=== PATIENT | female | born 1940 | race Caucasian/White ===

== ENCOUNTER → 2017-04-21 | Outpatient (CLI) | payer MEDICARE, BC ==
[~2017-04-21] MED LIST: ASPIRIN E.C. 8181 MG PO; B-121000 MCG PO; FISH OIL1000 MG PO; FOLIC ACID0.4 MG PO; GLUCOSAMINE & C1 CA1 PO; SUPER CALCIUM W1 TA1 PO; VITAMIN D31000 I1 PO; VITAMINC1000TA PO
== END ==
LOC: MC.RAD 11:15
DX: Z12.31 Encounter for screening mammogram for malignant neoplasm of breast (principal)

== ENCOUNTER → 2017-12-17 | Outpatient (CLI) | payer MEDICARE, BC | LOC: COL.RAD 09:58 | DX: M19.041 Primary osteoarthritis, right hand (principal) | CPT/HCPCS: J3301; Q9967 ==

== ENCOUNTER → 2018-05-02 | Outpatient (CLI) | payer MEDICARE, BC | LOC: MC.RAD 11:10 | DX: Z12.31 Encounter for screening mammogram for malignant neoplasm of breast (principal) ==

== ENCOUNTER → 2019-03-01 | Outpatient (CLI) | payer MEDICARE, BC | LOC: COL.RAD 13:00 | DX: M19.042 Primary osteoarthritis, left hand (principal) | CPT/HCPCS: J3301; Q9967 ==

== ENCOUNTER → 2019-06-05 | Outpatient (CLI) | payer MEDICARE, BC | LOC: MC.RAD 11:26 | DX: Z12.31 Encounter for screening mammogram for malignant neoplasm of breast (principal) ==

== ENCOUNTER → 2020-06-06 | Outpatient (CLI) | payer MEDICARE, BC | LOC: MC.RAD 11:15 | DX: Z12.31 Encounter for screening mammogram for malignant neoplasm of breast (principal) ==

== ENCOUNTER → 2020-10-04 | Outpatient (CLI) | payer MEDICARE, BC | LOC: COL.RAD 13:41 | DX: N18.32 Chronic kidney disease, stage 3b (principal) ==

== ENCOUNTER → 2021-06-27 | Outpatient (CLI) | payer MEDICARE, BC | LOC: MC.RAD 11:39 | DX: Z12.31 Encounter for screening mammogram for malignant neoplasm of breast (principal) ==

== ENCOUNTER → 2021-12-19 | Outpatient (CLI) | payer MEDICARE, BC | LOC: COL.RAD 09:57 | DX: M48.04 Spinal stenosis, thoracic region (principal) ==

== ENCOUNTER → 2022-08-12 | Outpatient (CLI) | payer MEDICARE, BC | LOC: MC.RAD 13:09 | DX: Z12.31 Encounter for screening mammogram for malignant neoplasm of breast (principal) ==

== ENCOUNTER → 2023-01-27 | Outpatient (CLI) | payer MEDICARE, BC | LOC: MHCPAIN 14:01 | DX: M54.50 Low back pain, unspecified (principal); M41.80 Other forms of scoliosis, site unspecified; M17.11 Unilateral primary osteoarthritis, right knee | CPT/HCPCS: G0463 ==

== ENCOUNTER → 2023-02-17 | Outpatient (CLI) | payer MEDICARE, BC | LOC: MHCPAIN 11:16 | DX: M54.50 Low back pain, unspecified (principal); M41.80 Other forms of scoliosis, site unspecified; M47.896 Other spondylosis, lumbar region; Q76.49 Other congenital malformations of spine, not associated with scoliosis | CPT/HCPCS: G0463 ==

== ENCOUNTER → 2023-04-12 | Outpatient (CLI) | payer MEDICARE, BC | LOC: COL.RAD 12:39 | DX: M25.551 Pain in right hip (principal) ==

== ENCOUNTER → 2023-04-29 | Outpatient (CLI) | payer MEDICARE, BC | LOC: MHCPAIN 10:53 | DX: M54.16 Radiculopathy, lumbar region (principal) | CPT/HCPCS: J1100; Q9967 ==

== ENCOUNTER → 2023-05-13 | Outpatient (CLI) | payer MEDICARE, BC ==
[~2023-05-13] MED LIST changes: +Lidocaine PF 1% (10 MG/ML) 5 ML VIAL ONE; +Triamcinolone 40 MG/ML 1 ML VIAL ONE
== END ==
LOC: MHCPAIN 14:56
DX: M54.50 Low back pain, unspecified (principal); M41.80 Other forms of scoliosis, site unspecified; M48.061 Spinal stenosis, lumbar region without neurogenic claudication; Q76.49 Other congenital malformations of spine, not associated with scoliosis; M70.61 Trochanteric bursitis, right hip
CPT/HCPCS: G0463; J3301

== ENCOUNTER 2023-08-10 13:51 | Inpatient (IN) | payer MEDICARE, BC ==
[~2023-08-10] VITALS: Ht 160 cm; Wt 59.1 kg
[~2023-08-10 13:51] MED LIST changes: +CRANBERRY PO; +EPA FISH OIL1 SGL PO; -Lidocaine PF 1% (10 MG/ML) 5 ML VIAL ONE; +NEURONTIN100 MG/CAP PO; +NORVASC 10MG10 MG PO; +PROBIOTIC-10 370 MG PO; -Triamcinolone 40 MG/ML 1 ML VIAL ONE; +VITAMIND3 5000 PO
[2023-08-10] MEDS ORDERED: Sennosides/Docusate 8.6-50 MG TAB PO PRN (16:15)
[2023-08-10] MEDS ORDERED: Naloxone 0.4 MG/ML VIAL IV PRN (16:15)
[2023-08-10] MEDS ORDERED: Polyethylene Glycol 3350 17 GM PDS PO PRN (16:15)
[2023-08-10] MEDS ORDERED: Acetaminophen 325 MG TAB PO PRN (16:15)
[2023-08-10] MEDS ORDERED: Docusate Sodium 100 MG CAP PO PRN (16:15)
[2023-08-10] MEDS ORDERED: oxyCODONE 5 MG TAB PO PRN (16:30)
[2023-08-10 17:10] VITALS: BP 138/65; PULSE 86; TEMP 98.4
[2023-08-10] MEDS ORDERED: ceFAZolin 1 G in Water For Injection,Sterile 10 ML IV SCH (18:00)
[2023-08-10 19:00] VITALS: BP_SYST 138
--- NOTE | 2023-08-10 19:15 | NUR ---
RECEIVED CHANGE OF SHIFT REPORT FROM DAY SHIFT NURSE. PATIENT RESTING IN BED, FAMILY AT BEDSIDE. EXIT ALARM ON, CALL LIGHT IN REACH. NO NEEDS VOICED AT TIME OF REPORT.
[2023-08-10] MEDS ORDERED: Gabapentin 100 MG CAP PO SCH (21:00)
--- NOTE | 2023-08-11 04:37 | NUR ---
REPORTED RIGHT HIP PAIN WITH MOVEMENT OF 9/10, SEE MAR FOR PAIN MED GIVEN. NO OTHER NEEDS REPORTED AT THIS TIME.
[2023-08-11 05:34] VITALS: BP 147/71; PULSE 89; TEMP 98
--- NOTE | 2023-08-11 07:08 | NUR ---
CHANGE OF SHIFT REPORT GIVEN TO DAY SHIFT NURSEMARIA DEL CARMEN. PATIENT RESTING IN BED, EXIT ALARM ON, CALL LIGHT IN REACH.
[2023-08-11 07:17] VITALS: BP_SYST 147
--- NOTE | 2023-08-11 07:18 | NUR ---
Shift report received from night RN. No events reported overnight. Pt sleeping supine in bed w/ even & unlabored. Call light in reach. Bed alarm on.
--- NOTE | 2023-08-11 08:42 | NUR ---
Pt up to ambulate off unit w/ PT.
[2023-08-11] MEDS ORDERED: Cholecalciferol (Vit D3) 5000 Units Capsule PO SCH (09:00)
[2023-08-11] MEDS ORDERED: Cyanocobalamin (Vit B-12) 1,000 MCG TAB PO SCH (09:00)
[2023-08-11] MEDS ORDERED: Omega-3 Fatty Acid Esters (OTC) 1,000 MG CAP PO SCH (09:00)
[2023-08-11] MEDS ORDERED: amLODIPine 10 MG TAB PO SCH (09:00)
--- NOTE | 2023-08-11 11:15 | NUR ---
Pt up to ambulate w/ PT. Pt requesting pain medication. Pt rates pain level at 9 w/ weight bearing activities & 3-4 while at rest. Oxycodone given per PRN order. Other needs denied. Call light in reach.
--- NOTE | 2023-08-11 11:51 | NUR ---
Ice pack given by PT for R hip pain.
--- NOTE | 2023-08-11 13:29 | NUR ---
Pt lying supine in bed. Pt reporting pain level around 8. 2nd dose Oxycodone given - okay per Hospitalist PA. OT at the bedside to work w/ pt. Other needs denied. Call light in reach.
--- NOTE | 2023-08-11 13:33 | NUR ---
Initial dose Keflex given. Reviewed side effects w/ pt. Lexicomp handout given.
--- NOTE | 2023-08-11 13:38 | NUR ---
DEMAR met with patient at bedside to discuss discharge planning. Patient states she lives in [place] alone, is normally independent with ADLs. She states her sons Jaylin ([phone]) and August are her DPOA. She sees Dr. Be as her PCP, uses [facility]. Patient has multiple DME: walker, cane, shower chair, elevated toilet and rollator walker. She relies on friends to drive her to appointments, has total of 10-12 steps in her split level home. Discussed recommendation of HH at discharge, Medicare.gov list provided for patient's review. Patient to talk with her sons to determine time for family meeting on 08/12 at either 9:30 am or 1 pm. Discharge Plan: Home with HH
[2023-08-11] MEDS ORDERED: Cephalexin 500 MG CAP PO SCH (14:00)
--- NOTE | 2023-08-11 14:53 | NUR ---
Initial visit; Patient thanked for looking in on her and when Roller Skate Assembler offered God's blessings Joan interjected the fact that she was Church but was glad to see and glaphil Tan took time to visit. wished Joan well.
--- NOTE | 2023-08-11 15:51 | NUR ---
Pt resting supine in bed. R hip dsg CDI. Pt rating pain at 3/10. Scheduled Tylenol given. Other needs denied. Call light in reach. Bed alarm on.
[2023-08-11] MEDS ORDERED: Acetaminophen 500 MG TAB PO SCH (16:00)
--- NOTE | 2023-08-11 16:21 | NUR ---
Pt supervised as she stood from bed to FWW to ambulate to the bathroom. Toileting hygiene completed independently by the pt. Pt back to bed after toileting. Ice pack given for pain control. Other needs denied. Call light in reach. Bed alarm on.
--- NOTE | 2023-08-11 19:08 | NUR ---
RECEIVED CHANGE OF SHIFT REPORT FROM DAY SHIFT NURSE.
[2023-08-11 19:25] VITALS: BP 134/61; PULSE 82; TEMP 98.9
[2023-08-11 19:31] VITALS: BP_SYST 134
--- NOTE | 2023-08-12 00:36 | NUR ---
REPORTS CONTINUES WITH RIGHT THIGH MUSCLE SORENESS WHEN REPOSITIONING FROM SIT TO STAND AND WITH WALKING BUT WHEN LAYING IN BED, SORENESS SUBSIDES. NO OTHER NEEDS REPORTED AT THIS TIME.
--- NOTE | 2023-08-12 03:10 | NUR ---
PATIENT RESTING IN BED WITH EYES CLOSED, BREATHING NONLABORED AND EVEN. EXIT ALARM ON, CALL LIGHT IN REACH.
[2023-08-12 05:11] VITALS: BP 148/66; PULSE 81; TEMP 97.6
[2023-08-12 05:58] LABS: BASO # 0.1 K/mm3 (0.0-0.2); BASO % 0.6 % (0.0-2.0); EOS # 0.2 K/mm3 (0.0-0.7); EOS % 1.4 % (0.0-4.0); GRAN % 73.4 % (42.2-75.2); LYMPH # 1.7 K/mm3 (1.2-3.4); LYMPH % 15.5 % (20.0-51.0); MEAN CELL VOLUME 99 fl (80.0-100.0); MEAN CORPUSCULAR HGB CONC 34 g/dl (33.0-37.0); MEAN PLATELET VOLUME 9.4 fl (7.4-10.4); MONO # 0.9 K/mm3 (0.1-0.6); MONO % 8.6 % (1.7-9.3); PLATELET COUNT 262 K/mm3 (130-400); RED BLOOD COUNT 2.79 M/mm3 (4.10-5.30); REDCELL DISTRIBUTION WIDTH-CV 11.9 % (11.5-14.5)
[2023-08-12 06:04] LABS: HEMATOCRIT 27.7 % (37.0-47.0); HEMOGLOBIN 9.4 g/dl (12.5-16.0); MEAN CORPUSCULAR HEMOGLOBIN 34 pg (27-31)
[2023-08-12 06:16] LABS: CALCIUM 8.9 mg/dL (8.4-10.2); CREATININE, serum 1.03 mg/dL (0.57-1.11)
[2023-08-12 06:46] VITALS: BP_SYST 148
--- NOTE | 2023-08-12 07:23 | NUR ---
Shift report received from night RN. No events reported overnight. Pt sleeping supine in bed w/ even & unlabored resps. Call light in reach. Bed alarm on.
--- NOTE | 2023-08-12 07:24 | NUR ---
Change of shift report given to day shift nurseAbby.
--- NOTE | 2023-08-12 08:32 | NUR ---
Pt sitting up in bed eating breakfast independently. Pt requesting pain medication prior to starting therapy this morning. Too soon for next dose of Oxycodone. Scheduled Tylenol given for now. Other needs denied. Call light in reach. Bed alarm on.
--- NOTE | 2023-08-12 08:52 | NUR ---
Pt noted getting off toilet w/o asking for assistance by SHOW HOST OR HOSTESS. Re-education provided about fall policy. Pt to wheelchair after toileting. Chair alarm in place. Oxycodone given per PRN order. Pt up to wheelchair waiting for arrival of PT. Call light in reach.
[2023-08-12] MEDS ORDERED: Polyethylene Glycol 3350 17 GM PDS PO SCH (09:00)
--- NOTE | 2023-08-12 09:25 | NUR ---
Pt ambulating off unit w/ PT. Oxycodone given per PRN order
[2023-08-12] MEDS ORDERED: Lidocaine 5% Ointment 35.44 GM TUBE TP SCH (09:37)
--- NOTE | 2023-08-12 10:32 | NUR ---
Called pt's PCP office & spoke w/ nurse Rico to request a hospital discharge appt w/ the PCP, Dr. Be. Per Nurse, they will not schedule a follow up until AFTER pt is discharged. Will note this information on pt's discharge paperwork for the pt to call.
--- NOTE | 2023-08-12 11:40 | NUR ---
DEMAR Jacobs met with patient at bedside to discuss what time would work for her family meeting tomorrow. Patient stated that 9:30 would work better for her sons schedules. Patient questioned what the family meeting would be for. DEMAR Jacobs explained what a family meeting would look like and what would be discussed. Patient did not have any additional questions at this time. IPR Director Fiordaliza informed of family meeting time.
--- NOTE | 2023-08-12 14:48 | NUR ---
Call placed to Dr. Mckeon's office re: dressing change order. R hip incision is well approximated w/o drainage on abd pad. Received verbal permission to change abd. pad to air strip dressing or light dressing. Okay to shower but keep incision covered, clean, dry during shower. OT aware.
--- NOTE | 2023-08-12 15:40 | NUR ---
Pt reporting bilateral hip discomfort that she thinks she noticed after doing PT today. Scheduled Tylenol given. Extra pillows & ice pack given for comfort. Will continue to monitor.
[2023-08-12 17:11] VITALS: BP 135/65; PULSE 84; TEMP 97.8
[2023-08-12 18:30] VITALS: BP_SYST 135
--- NOTE | 2023-08-12 23:00 | NUR ---
UPON SHIFT ASSESSMENT, GIOVANNY HAD FRIENDS VISITING BEDSIDE. SHE IS CHEERFUL AND AXO X4. PULSES DISTAL TO INCISION SITE GOOD. RT HIP AIRSTRIP IS CDI. GIOVANNY REQUESTED THAT PAIN MEDS BE GIVEN AT 0700 PRIOR TO PT SESSION. VS ARE WNL, CALL LIGHT WITHIN REACH AND BED ALARM ON.
--- NOTE | 2023-08-13 00:22 | NUR ---
PATIENT C/O RAW ELBOWS FROM ROUGH LINEN AND USING ELBOWS TO SHIFT IN BED. REQUESTED AND LEFT MEPIPLEX BEDSIDE. ELBOWS ARE RED AND EXCORIATED.
[2023-08-13 05:57] VITALS: BP 137/66; PULSE 85; TEMP 98.1
--- NOTE | 2023-08-13 06:09 | NUR ---
PATIENT CONCERNED WITH PERSISTENT 8/10 PAIN IN RT LEG WHEN AMBULATING. SHE STATES SHE FEARS HIP REPLACEMENT MAY HAVE COMPLICATIONS. THIS NURSE READ POSTOP IMAGING RESULTS (NO COMPLICATIONS) TO PATIENT AND PROVIDED ADDITIONAL PRINTED MATERIALS. ADVISED PATIENT TO VOICE CONCERNS WITH ROUNDING ORTHO. GAVE PRN JAMIL. CALL LIGHT WITHIN REACH, BED ALARM ON.
[2023-08-13 07:31] VITALS: BP_SYST 137
--- NOTE | 2023-08-13 09:17 | NUR ---
PT RESTING IN BED WITH 2/10 PAIN RIGHT HIP. PT COMPLAINING OF STABBING PAIN UNDER INCISION SITE ON R LATERAL LEG WITH MOVEMENT. 1 ASSIST WITH WALKER AND GAIT BELT TO BATHROOM. DRESSING TO RIGHT HIP CLEAN AND DRY. NO NEEDS AT THIS ITME. WILL CONTINUE TO MONITOR.
[2023-08-13] MEDS ORDERED: oxyCODONE 5 MG TAB PO PRN (09:30)
[2023-08-13] MEDS ORDERED: Mouth Moisturizer Spray 30 ML BOTTLE PO PRN (09:30)
--- NOTE | 2023-08-13 13:24 | NUR ---
overhead line worker attended family meeting and called two sons, August and Apolinar. IPR staff attended meeting. The team felt as though patient could discharge 08/18/23 with HH services. Pt and family were agreeable. Pt needs no equipment. SW met with patient who [facility] as she is familiar with them. SW faxed referral to [facility]. Discharge Plan: 08/17 with [facility]
[2023-08-13 16:21] VITALS: BP 134/69; PULSE 79; TEMP 98.1
[2023-08-13 19:00] VITALS: BP_SYST 134
--- NOTE | 2023-08-13 22:56 | NUR ---
PT AWAKE LAYING IN BED WATCHING TV. NO C/O PAIN, ASSESSED, SEE DOCUMENTATION. MEDICATED PER EMAR. PT SLIGHTLY FORGETFUL, AFTER TAKING HIS NIGHT MEDS, HE SAID HE FELT THAT HE DROPPED HIS PILLS ON THE FLOOR. I WATCHED HIM TAKE THEM, SO HE DID TAKE THEM SUCCESSFULLY. ALERT AND OREINTED TO SELF AND PLACE. IS NOW WEARING HIS CPAP WITH ENCOURAGEMENT. BED IN LOWEST POSITION, BED ALARM ENGAGED. CALL LIGHT WITHIN REACH.
--- NOTE | 2023-08-14 01:48 | NUR ---
PT ALERT AND ORIENTED RESTING IN BED, C/O PAIN TO RIGHT HIP,OXYSODONE GIVEN. ASSESSED, SEE DOCUMENTATION. aBLE TO AMBULATE WITH STANDBY 1 PERSON ASSIST. DENES FURTHER NEED AT THIS TIME. CALL LIGHT WITHIN REACH.
[2023-08-14 05:56] VITALS: BP 149/63; PULSE 93; TEMP 98.1
[2023-08-14 07:00] VITALS: BP_SYST 149
[2023-08-14] MEDS ORDERED: Polyethylene Glycol 3350 17 GM PDS PO SCH (09:00)
--- NOTE | 2023-08-14 09:36 | NUR ---
Patient awake, alert and oriented. C/O pain in her right leg with movement, PRN given as ordered. x1 SBA with FWW, able to ambulate to bathroom. Agreeable with therapy today.
--- NOTE | 2023-08-14 11:16 | NUR ---
Dressing to R hip changed, katalina intact, edges well approximated, no drainage observed. Cleaned with iodine, airstrip replaced.
[2023-08-14 17:28] VITALS: BP 127/70; PULSE 75; TEMP 98.1
[2023-08-14 18:30] VITALS: BP_SYST 127
--- NOTE | 2023-08-14 20:24 | NUR ---
SHIFT ASSESSMENT COMPLETE. PATIENT RESTING IN BED TALKING ON PHONE. ALL NIGHT MEDS GIVEN PER ODERS. PATIENT HAS NO REQUEST OR COMPLAINTS AT THIS TIME. FALL PRECAUTIONS IN PLACE AND CALL LIGHT IN REACH.
[2023-08-15 05:17] VITALS: BP 139/61; PULSE 82; TEMP 97.6
--- NOTE | 2023-08-15 06:21 | NUR ---
PATIENT HAD A RESTFUL NIGHT, NO COMPLAINTS OR REQUEST. FALL PRECAUTIONS IN PLACE AND CALL LIGHT IN REACH.
--- NOTE | 2023-08-15 06:55 | NUR ---
appears to be dozing when entered room, aroused easily and voiced frustration over being awakened again, she just wants to sleep, will explain to her when she is more awake that we have care responsibilities we have to do and we do have to wake patients to complete these
[2023-08-15 07:12] VITALS: BP_SYST 139
--- NOTE | 2023-08-15 08:30 | NUR ---
appears to be sleeping, in bed witih lights off, eyes closed, resp quiet and easy, will let her continue to sleep and not wake her for breakfast,
--- NOTE | 2023-08-15 08:50 | NUR ---
NILDA Valdez in to see patient, full assessment completed, see interventions for further info, breakfast provided to patient, denies needs at this time
--- NOTE | 2023-08-15 10:00 | NUR ---
assisted up to bathroom by PERSONAL SUPPORT WORKER to void
--- NOTE | 2023-08-15 10:45 | NUR ---
in bed with lights off, eyes closed, resp quiet and easy
--- NOTE | 2023-08-15 11:35 | NUR ---
is beginning to c/o throbbing pain to right hip and requesting pain meds, medicated with roxicodone 10mg po
--- NOTE | 2023-08-15 13:02 | NUR ---
assisted up and out of bed and ambulated out in singh per her request, offered to have her sit in recliner but she declines saying it causes her back to hurt, returned to bed
--- NOTE | 2023-08-15 13:49 | NUR ---
sitting up in bed visiting with a friend
--- NOTE | 2023-08-15 14:30 | NUR ---
visiting with friend, given scheduled antibiotic
--- NOTE | 2023-08-15 16:45 | NUR ---
assisted out of bed, airstrip dressing removed and katalina intact and no redness to incision, cleaned with betadine and incision covered with 4x4s and held in place with paper tape, c/o pain 08/17 and medicated with roxicodone 10mg
--- NOTE | 2023-08-15 16:45 | NUR ---
medicated with roxicodne 10mg po for c/os increasing pain after ambulating in the singh
--- NOTE | 2023-08-15 17:15 | NUR ---
declines our supper as a friend is bringing something in for her
[2023-08-15 17:34] VITALS: BP 132/66; PULSE 81; TEMP 98
--- NOTE | 2023-08-15 18:50 | NUR ---
bedside shift report given to MARISELA Malik
[2023-08-15 18:58] VITALS: BP_SYST 132
--- NOTE | 2023-08-15 18:58 | NUR ---
RECEIVED CHANGE OF SHIFT REPORT FROM DAY SHIFT NURSE.
--- NOTE | 2023-08-15 19:00 | NUR ---
PATIENT RESTING IN BED, EXIT ALARM ON, CALL LIGHT IN REACH, VISITORS IN ROOM AT TIME OF REPORT.
--- NOTE | 2023-08-15 21:45 | NUR ---
REQUESTED AND GIVEN PAIN MEDS, SEE MAR AND PATIENT AGREED TO TAKE STOOL SOFTENER AT THIS TIME, SEE MAR.
[2023-08-16] VITALS (8 sets, daily range): BP systolic 90–148; BP diastolic 52–79; PULSE 75–114; TEMP 97.5
--- NOTE | 2023-08-16 07:38 | NUR ---
CHANGE OF SHIFT REPORT GIVEN TO DAY SHIFT NURSEDIVINE.
--- NOTE | 2023-08-16 08:00 | NUR ---
PATIENT IS A&O. PATIENT UP TO BATHROOM AND THEN BEDSIDE CHAIR WITH THERAPY AND IS REPORTING DIZZINESS. B/P CHECKED; 117/61. VSS. NO C/O N/V. PATIENT STATES SHE SOMETIMES GETS DIZZY IN THE AM WHEN SHE GETS UP FOR THE FIRST TIME, WILL MONITOR. HOLDING OFF ON NARCOTIC TO MONITOR AND PATIENT AGREED. REPORTS PAIN IN RLE MILD TO MOD WITH ACTIVITY, REPORTS ITS MANAGED AT THIS TIME. ALL OTHER AM MEDS GIVEN INCLUDING SCHEDULED TYLENOL. PATIENT REPORTS "RABBIT PELLETS FOR A BM". GAVE SCHEDULED DOSE OF MIRALAX, 2 PKG PER ORDER. RIGHT HIP DSG IS CD&I WITH GAUZE. SCD'S CURRENTLY OFF. 1 ASSIST WITH WALKER. PT/OT CONSULTED. HEAD TO TOE ASSESSMENT COMPLETE. NO OTHER NEEDS AT THIS TIME. CALL LIGHT IN REACH. CHAIR ALARM ON.
[2023-08-16] MEDS ORDERED: Docusate Sodium 100 MG CAP PO SCH (09:00)
--- NOTE | 2023-08-16 09:00 | NUR ---
THERAPY REPORTED PATIENT WAS ASSISTED TO BATHROOM AND WAS ABLE TO HAVE A LARGE-FORMED BM AFTER MIRALAX THIS AM.
[2023-08-16] MEDS ORDERED: Phenylephrine/Mineral Oil/Petrolatum 57 GM TUBE RC PRN (09:15)
[2023-08-16 10:30] LABS: HEMOGLOBIN 10.2 g/dl (12.5-16.0); MEAN CELL VOLUME 101 fl (80.0-100.0); MEAN CORPUSCULAR HEMOGLOBIN 34 pg (27-31); MEAN CORPUSCULAR HGB CONC 34 g/dl (33.0-37.0); MEAN PLATELET VOLUME 8.6 fl (7.4-10.4); PLATELET COUNT 442 K/mm3 (130-400); RED BLOOD COUNT 3.01 M/mm3 (4.10-5.30); REDCELL DISTRIBUTION WIDTH-CV 11.9 % (11.5-14.5)
--- NOTE | 2023-08-16 10:30 | NUR ---
PATIENT STILL C/O DIZZINESS WITH ACTIVITY, NO COMPLAINTS AT REST. ORTHOSTATIC B/P TAKEN, SEE CHARTING. ORDERED LABS, PENDING.
[2023-08-16 10:43] LABS: HEMATOCRIT 30.3 % (37.0-47.0)
[2023-08-16 10:57] LABS: CALCIUM 9.3 mg/dL (8.4-10.2); CREATININE, serum 1.38 mg/dL (0.57-1.11); POTASSIUM 4.2 mEq/L (3.5-4.5)
[2023-08-16 11:18] LABS: BAND 1 % (0-10); EOSINOPHIL 1 % (0-4); LYMPHOCYTE 18 % (20.0-51.0); NEUTROPHILS 76 % (42.0-75.2)
[2023-08-16 11:19] LABS: PLATELET ESTIMATE INCREASED (NORMAL)
--- NOTE | 2023-08-16 13:43 | NUR ---
Admission QIM scores were reviewed by the team. Code of 4 chosen for toileting hygiene was determined by team discussion to be the most usual performance for this patient during the discharge assessment period. Code of 4 chosen for toilet transfers was determined by team discussion to be the most usual performance for this patient during the discharge assessment period. Code of 4 chosen for shower/bathe self was determined by team discussion to be the most usual performance before interventions for this patient during the assessment period. Code of 4 chosen for upper body dressing was determined by team discussion to be the most usual performance before interventions for this patient during the assessment period. Code of 3 chosen for lower body dressing was determined by team discussion to be the most usual performance before interventions for this patient during the assessment period. Code of 4 chosen for sit to lying was determined by team discussion to be the most usual performance before interventions for this patient during the assessment period. Code of 4 chosen for sit to stand was determined by team discussion to be the most usual performance for this patient during the discharge assessment period.--Fiordaliza Lind, PD
--- NOTE | 2023-08-16 15:18 | NUR ---
Child Protection Specialist contacted [facility] and confirmed they can accept patient. SW met with patient to review discharge plan for Wednesday. Patient stated she still has pain but is feeling more normal today. DEMAR explained the process for HH and what services are covered under her insurance. Patient is hopeful to transition to outpatient PT as soon as she is able.
--- NOTE | 2023-08-16 19:00 | NUR ---
RECEIVED CHANGE OF SHIFT REPORT FROM DAY SHIFT NURSE. PATIENT RESTING IN BED, EXIT ALARM ON, CALL LIGHT IN REACH.
--- NOTE | 2023-08-16 20:30 | NUR ---
PATIENT WANTING TO CONTINUE TAKING TYLENOL EXTRA STRENGTH FOR PAIN MANAGEMENT FOR NOW, REPORTS DOES NOT WANT TO TAKE NARCOTIC DUE TO CONCERNS ABOUT DIZZINESS RECURRING. UP TO BATHROOM, AMBULATED STEADY BUT STILL HAS COMPLAINT TO ANT RIGHT THIGH SORENESS BUT FEELS THAT SHE IS WALKING "BETTER THAN BEFORE".
[2023-08-17] VITALS (11 sets, daily range): BP systolic 85–163; BP diastolic 54–83; PULSE 73–102; TEMP 97.9–98
--- NOTE | 2023-08-17 04:32 | NUR ---
PATIENT RESTING IN BED, BREATHING NONLABORED/EVEN. PATIENT DID NOT WAKE DURING NURSING ROUNDS. EXIT ALARM ON, CALL LIGHT IN REACH.
--- NOTE | 2023-08-17 07:20 | NUR ---
Change of shift report given to day shift nurses, Jake. Patient resting in bed with exit alarm on, call light in reach.
--- NOTE | 2023-08-17 07:39 | NUR ---
Shift report received from night RN. No events reported overnight. Pt sitting up in bed eating breakfast independently. R hip dressing CDI. Pt denies the need for pain medication at this time. Other needs denied. Call light in reach. Fall precautions.
[2023-08-17] MEDS ORDERED: NS 1,000 ML IV SCH (08:30)
--- NOTE | 2023-08-17 08:40 | NUR ---
THIS NURSE CALLED TO SHOWER ROOM BY THERAPY, PT LEANING AGAINST WALL, SITTING ON SHOWER CHAIR, PALE, ABLE TO ANSWER QUESTIONS. THERAPY REPORTS PATIENT HAD NOT BEEN RESPONDING PREVIOUSLY. PT REPORTS FEELING BETTER. V/S OBTAINED, NOTED TO BE HYPOTENSIVE. NURSE AND THERAPY REMAIN WITH PT. PT ASSISTED TO ROOM BR VIA W/C, REPORTS CONTINUED IMPROVEMENT, INCREASED ALERTNESS, DECREASED DIZZINESS. PROVIDER NOTIFIED.
--- NOTE | 2023-08-17 09:04 | NUR ---
PROVIDER AT BEDSIDE, PLAN OF CARE DISCUSSED. PT AGREEABLE TO IV FLUID BOLUS. IV STARTED WITHOUT DIFFICULTY, IVF STARTED. PT ASSISTED INTO CLOTHING, TO BR WITH WALKER ET SBA.
--- NOTE | 2023-08-17 09:28 | NUR ---
PT C/O PAIN AT IV INSERTION SITE AFTER REPORTEDLY HITTING IT GETTING BACK TO BED. NO REDNESS, NO EDEMA NOTED. PT REASSURED. NURSE REASSESSED AT THIS TIME, IV SITE WITHOUT REDNESS NOR EDEMA. PT RESTING QUIETLY, EYES CLOSED.
--- NOTE | 2023-08-17 10:22 | NUR ---
Social work student met with patient to complete important message from medicare form. Patient notified social work student that she is now discharging on due to her blood pressure. Social work student informed patient that we will complete important message from medicare form either Wednesday or . Social work student called [facility] to notify them that patient will be discharging now. Social work student faxed updates to [facility]. Discharge plan: Home with [facility]
--- NOTE | 2023-08-17 12:25 | NUR ---
PT REMAINS IN BED FOR LUNCH, EATING INDEPENDENTLY WITHOUT DIFFICULTY, NO C/O LIGHTHEADEDNESS, IV FLUIDS INFUSINGS, IV SITE WITHOUT REDNESS OR EDEMA.
--- NOTE | 2023-08-17 12:54 | NUR ---
PT TO THERAPY, AMBULATING WITH THERAPY STAFF, IVF INFUSING WITHOUT DIFFICULTY
--- NOTE | 2023-08-17 15:37 | NUR ---
DR NOTIFIED OF ORTHOSTATIC V/S, NO NEW ORDERS RECEIVED.
--- NOTE | 2023-08-17 19:21 | NUR ---
RECEIVED CHANGE OF SHIFT REPORT FROM DAY SHIFT NURSE. PATIENT RESTING IN BED, EXIT ALARM ON, CALL LIGHT IN REACH. NO NEEDS VOICED AT TIME OF REPORT.
--- NOTE | 2023-08-18 02:00 | NUR ---
PATIENT RESTING IN BED, EYES CLOSED, BREATHING NONLABORED AND EVEN. EXIT ALARM ON, CALL LIGHT IN REACH. DID NOT WAKE DURING NURSE ROUNDING.
[2023-08-18 05:47] VITALS: BP 156/59; PULSE 83; TEMP 97.5
--- NOTE | 2023-08-18 07:13 | NUR ---
CHANGE OF SHIFT REPORT GIVEN TO DAY SHIFT NURSEMARIA DEL CARMEN.
[2023-08-18 07:17] VITALS: BP_SYST 156
--- NOTE | 2023-08-18 08:38 | NUR ---
Pt sitting up in bed after eating breakfast. Pt is tearful this morning over the loss of 3 friends. Scheduled Tylenol given for pain. Pt denies the need for additional pain medication at this time. Other needs denied. Call light in reach. Bed alarm on.
[2023-08-18] MEDS ORDERED: Polyethylene Glycol 3350 17 GM PDS PO PRN (09:02)
--- NOTE | 2023-08-18 09:13 | NUR ---
Pt ambulating off unit w/ PT.
--- NOTE | 2023-08-18 13:02 | NUR ---
Pt ambulating off unit w/ PT.
--- NOTE | 2023-08-18 14:39 | NUR ---
Executive Housekeeper met with patient to discuss discharge date of tomorrow. Patient stated she is ready to get home and has arranged a ride. DEMAR advised [facility] set [facility] and will contact her after discharge to schedule. DEMAR also provided a copy of team conference notes for patient to review. No further questions at this time.
[2023-08-18 18:00] VITALS: BP 145/74; PULSE 76; TEMP 97.6
--- NOTE | 2023-08-18 18:31 | NUR ---
Pt lying supine in bed reading a book. Pt denies pain/discomfort at this time. Denies any needs. Call light in reach. Bed alarm on.
[2023-08-18 19:38] VITALS: BP_SYST 145
--- NOTE | 2023-08-19 | NUR ---
patient lying in bed, alert and oriented x4. pt denies chest pain and shortness of breath. abulating with steady gait, SBA with walker. incision to right hip is clean dry and intact with airstrips/light guaze dressing and papertape applied. pt has no further needs, questions, or concerns at this time. fall precautions in place, call light within reach. will continue to monitor.
[2023-08-19 06:01] VITALS: BP 155/60; PULSE 77; TEMP 97.6
[2023-08-19 07:20] VITALS: BP_SYST 155
[2023-08-19] MEDS ORDERED: amLODIPine 5 MG TAB PO SCH (09:12)
[2023-08-19] MEDS ORDERED: CEPHALEXIN500 M1 PO (09:14)
[2023-08-19] MEDS ORDERED: ASPIRIN E.C. 8181 MG PO (09:14)
[2023-08-19] MEDS ORDERED: MIRALAX238G PO (09:16)
[2023-08-19] MEDS ORDERED: TYLENOL 500MG500 MG PO (09:18)
[2023-08-19] MEDS ORDERED: NORVASC 5MG5 MG/TAB PO (09:18)
[2023-08-19] MEDS ORDERED: ROXICODONE 55 MG/TAB PO (09:19)
--- NOTE | 2023-08-19 10:00 | NUR ---
PT LAYING IN BED ALERT AND ORIENTEDX4. RATES PAIN 5/10 IN THE RIGHT HIP. ASSESSED AND GAVE MORNING MEDS. NO OTHER COMPLAINTS AT THIS TIME. CALL LIGHT WITHIN REACH.
--- NOTE | 2023-08-19 10:58 | NUR ---
PT HAS ORDERS TO DISCHARGE TO HOME WITH HOMEHEALTH. WENT OVER DISCHARGE PAPERWORK WITH PT. THIS NURSE ESCORTED PT OUT TO FRIENDS CAR.
--- NOTE | 2023-08-19 13:04 | NUR ---
Discharge QIM scores were reviewed by the team. Code of 5 chosen for shower/bathe self was determined by team discussion to be the most usual performance for this patient during the discharge assessment period. Code of 6 chosen for walking 10 feet was determined by team discussion to be the most usual performance for this patient during the discharge assessment period. Code of 6 chosen for walking 50 feet w/ 2 turns was determined by team discussion to be the most usual performance before interventions for this patient during the discharge assessment period. Code of 6 chosen for walking 150 feet was determined by team discussion to be the most usual performance for this patient during the discharge assessment period. Code of 6 chosen for walk 10 feet on uneven surface was determined by team discussion to be the most usual performance for this patient during the discharge assessment period.--Fiordaliza Lind, PD
--- NOTE | 2023-08-19 14:04 | NUR ---
Baggage Handler contacted Delvin at [facility] and faxed discharge orders.
== END 2023-08-19 11:08 | disposition home health service (06) | DRG 561 ==
PROVIDERS: ADMIT Physical Medicine & Rehabilitation Sports Medicine
DX: Z47.1 Aftercare following joint replacement surgery (principal); R26.89 Other abnormalities of gait and mobility; K59.00 Constipation, unspecified; M54.16 Radiculopathy, lumbar region; Q76.49 Other congenital malformations of spine, not associated with scoliosis; N18.30 Chronic kidney disease, stage 3 unspecified; I12.9 Hypertensive chronic kidney disease with stage 1 through stage 4 chronic kidney disease, or unspecified chronic kidney disease; D72.829 Elevated white blood cell count, unspecified; D64.89 Other specified anemias; R53.81 Other malaise; Z96.641 Presence of right artificial hip joint; Z79.899 Other long term (current) drug therapy; Z74.09 Other reduced mobility; Z88.2 Allergy status to sulfonamides; I95.1 Orthostatic hypotension
CPT/HCPCS: J0690; J7030

== ENCOUNTER → 2023-09-13 | Outpatient (CLI) | payer MEDICARE, BC ==
[~2023-09-13] MED LIST changes: +CEFTIN500 MG PO; +CEPHALEXIN500 M1 PO; +MIRALAX238G PO; +NORVASC 5MG5 MG/TAB PO; +ROXICODONE 55 MG/TAB PO; +TYLENOL 500MG500 MG PO
== END ==
LOC: MHCPAIN 11:27
DX: M54.50 Low back pain, unspecified (principal); M41.80 Other forms of scoliosis, site unspecified; M48.061 Spinal stenosis, lumbar region without neurogenic claudication; Q76.49 Other congenital malformations of spine, not associated with scoliosis; Z96.641 Presence of right artificial hip joint
CPT/HCPCS: G0463

== ENCOUNTER 2023-09-14 17:24 | Emergency (ER) | payer MEDICARE, BC ==
[~2023-09-14] VITALS: Ht 160 cm; Wt 58.2 kg
[~2023-09-14 17:24] MED LIST changes: -CEFTIN500 MG PO
[2023-09-14 17:33] VITALS: TEMP 98
[2023-09-14 17:55] LABS: BASO # 0.1 K/mm3 (0.0-0.2); BASO % 0.8 % (0.0-2.0); EOS # 0.3 K/mm3 (0.0-0.7); EOS % 2.6 % (0.0-4.0); GRAN # 5.1 K/mm3 (1.4-6.5); GRAN % 52.8 % (42.2-75.2); LYMPH # 3.4 K/mm3 (1.2-3.4); LYMPH % 34.5 % (20.0-51.0); MEAN CELL VOLUME 100 fl (80.0-100.0); MEAN CORPUSCULAR HEMOGLOBIN 33 pg (27-31); MEAN CORPUSCULAR HGB CONC 33 g/dl (33.0-37.0); MEAN PLATELET VOLUME 8.5 fl (7.4-10.4); MONO # 0.8 K/mm3 (0.1-0.6); MONO % 8.2 % (1.7-9.3); PLATELET COUNT 418 K/mm3 (130-400); RED BLOOD COUNT 3.29 M/mm3 (4.10-5.30); REDCELL DISTRIBUTION WIDTH-CV 12.2 % (11.5-14.5)
[2023-09-14 18:13] LABS: ALBUMIN 3.8 g/dL (3.4-4.8); BILIRUBIN,TOTAL 0.4 mg/dL (0.2-1.2); CALCIUM 9.9 mg/dL (8.4-10.2); CREATININE, serum 1.35 mg/dL (0.57-1.11); POTASSIUM 3.7 mEq/L (3.5-4.5); TOTAL PROTEIN 7.4 g/dl (6.2-8.1)
[2023-09-14 18:19] LABS: TROPONIN-I 0.015 ng/mL (0.00-0.033)
[2023-09-14] MEDS ORDERED: NS 1,000 ML IV ONE (18:45)
[2023-09-14 19:48] LABS: URINE APPEARANCE CLEAR (CLEAR/HAZY); URINE BLOOD NEGATIVE (NEGATIVE); URINE COLOR YELLOW (YELLOW); URINE GLUCOSE NEGATIVE (NEGATIVE); URINE KETONE NEGATIVE (NEGATIVE); URINE NITRATE NEGATIVE (NEGATIVE); URINE PROTEIN(semi-quant) NEGATIVE (NEGATIVE); URINE UROBILINOGEN 0.2 E.U/dL (0.2-1.0)
[2023-09-14 19:53] LABS: COLLECTION METHOD CLEAN CATCH
[2023-09-14] MEDS ORDERED: CEFTIN500 MG PO (19:53)
[2023-09-14] MEDS ORDERED: cefTRIAXone 1 G in Water For Injection,Sterile 10 ML IV ONE (20:00)
[2023-09-14 20:18] VITALS: BP 145/76; PULSE 78
== END 2023-09-14 20:18 | disposition home or self-care (01) ==
LOC: COL.ER 17:24
PROVIDERS: Physician Assistant
DX: N39.0 Urinary tract infection, site not specified (principal); Z88.2 Allergy status to sulfonamides
CPT/HCPCS: J0696; J7030

== ENCOUNTER → 2023-11-15 | Outpatient (CLI) | payer MEDICARE, BC ==
[~2023-11-15] MED LIST changes: +CEFTIN500 MG PO
== END ==
LOC: MHCPAIN 11:27
DX: M54.50 Low back pain, unspecified (principal); M41.86 Other forms of scoliosis, lumbar region; M48.061 Spinal stenosis, lumbar region without neurogenic claudication; Q76.49 Other congenital malformations of spine, not associated with scoliosis; Z96.641 Presence of right artificial hip joint
CPT/HCPCS: G0463